=== PATIENT | male | born 1980 | race American Indian/Alaskan Native ===

== ENCOUNTER 2018-05-15 20:28 | Emergency (ER) | payer SELFPAY ==
[2018-05-15] MEDS ORDERED: TYLENOL ONE (20:38)
[2018-05-15 20:45] VITALS: BP 136/86
[2018-05-15] MEDS ORDERED: TYLENOL PO ONE (20:45)
--- NOTE | 2018-05-16 02:01 | Emergency Department Report ---
ED ENT HPI - General Chief complaint: Sore Throat Stated complaint: SORETHROAT Time Seen by Provider: 05/16/18 01:57 Source: patient Mode of arrival: Ambulatory Limitations: No Limitations - History of Present Illness Initial comments: 37-year-old Italian male comes in complaining of sore throat and headache 2 days. Patient reports that his at home suffering from the same issue. Patient denies any fever or chills no nausea no vomiting. Patient reports is taken Tylenol in triage and Advil at home. MD complaint: tooth pain -: days(s) (2) Location: throat Severity scale (0 -10): 6 Quality: stabbing, sharp Consistency: constant Improves with: none Worsens with: swallowing Associated Symptoms: other (headaches) - Related Data Previous Rx's Medication Instructions Recorded Last Taken Type Amoxicillin [Amoxicillin TAB] 875 mg PO BID 10 Days #20 tablet 05/16/18 Unknown Rx Ibuprofen [Motrin 800 MG tab] 800 mg PO Q8HR PRN 10 Days #30 05/16/18 Unknown Rx tablet Allergies Allergy/AdvReac Type Severity Reaction Status Date / Time No Known Allergies Allergy Unverified 05/15/18 20:38 ED Dental HPI - General Chief complaint: Sore Throat Stated complaint: SORETHROAT Time Seen by Provider: 05/16/18 01:57 Source: patient Mode of arrival: Ambulatory Limitations: No Limitations - Related Data Previous Rx's Medication Instructions Recorded Last Taken Type Amoxicillin [Amoxicillin TAB] 875 mg PO BID 10 Days #20 tablet 05/16/18 Unknown Rx Ibuprofen [Motrin 800 MG tab] 800 mg PO Q8HR PRN 10 Days #30 05/16/18 Unknown Rx tablet Allergies Allergy/AdvReac Type Severity Reaction Status Date / Time No Known Allergies Allergy Unverified 05/15/18 20:38 ED Review of Systems ROS: Stated complaint: SORETHROAT Other details as noted in HPI Constitutional: denies: chills, fever ENT: throat pain Gastrointestinal: denies: abdominal pain, nausea, diarrhea Neurological: headache ED Past Medical Hx - Medications Home Medications: Home Medications Medication Instructions Recorded Confirmed Last Taken Type Amoxicillin [Amoxicillin TAB] 875 mg PO BID 10 Days #20 tablet 05/16/18 Unknown Rx Ibuprofen [Motrin 800 MG tab] 800 mg PO Q8HR PRN 10 Days #30 05/16/18 Unknown Rx tablet ED Physical Exam - General Limitations: No Limitations General appearance: alert, in no apparent distress - Head Head exam: Present: atraumatic, normocephalic - Expanded ENT Exam Expanded Throat exam: Positive: tonsillar erythema, tonsillomegaly, tonsillar exudate - Neck Neck exam: Present: tenderness, full ROM, lymphadenopathy - Respiratory Respiratory exam: Present: normal lung sounds bilaterally. Absent: respiratory distress - Cardiovascular Cardiovascular Exam: Present: regular rate, normal rhythm. Absent: systolic murmur, diastolic murmur, rubs, gallop - GI/Abdominal GI/Abdominal exam: Present: soft, normal bowel sounds ED Course Vital Signs 05/15/18 05/15/18 20:39 20:46 Temperature 98.6 F Pulse Rate 89 Respiratory 18 18 Rate Blood Pressure 136/86 O2 Sat by Pulse 99 Oximetry ED Medical Decision Making - Medical Decision Making Patient has been evaluated by this provider fast track. Patient was given Tylenol in triage for pain management. Strep test came back positive. We'll treat patient with amoxicillin and ibuprofen. If symptoms persist or gets worse patient should follow-up with his primary care provider. Critical care attestation.: If time is entered above; I have spent that time in minutes in the direct care of this critically ill patient, excluding procedure time. ED Disposition Clinical Impression: Strep pharyngitis Disposition: DC-01 TO HOME OR SELFCARE Is pt being admited?: No Does the pt Need Aspirin: No Condition: Stable Instructions: Strep Throat (ED) Additional Instructions: Complete antibiotics as prescribed. Take pain medication as needed. Symptoms persist or gets worse follow up with her primary care provider Prescriptions: Amoxicillin [Amoxicillin TAB] 875 mg PO BID 10 Days #20 tablet Ibuprofen [Motrin 800 MG tab] 800 mg PO Q8HR PRN 10 Days #30 tablet PRN Reason: Pain , Severe (7-10) Referrals: PRIMARY CARE, [Primary Care Provider] - 3-5 Days [facility] [Provider Group] - 3-5 Days Forms: Work/School Release Form(ED)
== END 2018-05-16 02:10 | disposition home or self-care (01) ==
LOC: ED 20:28
DX: J02.0 Streptococcal pharyngitis (principal)
CPT/HCPCS: 87430; 99283